=== PATIENT | female | born 1995 | race Caucasian/White ===

== ENCOUNTER 2016-08-10 00:04 | Emergency (ER) | payer OTHER, SELFPAY ==
[2016-08-10] MEDS ORDERED: AMOXicillin 250 MG CAP ONE (00:27)
[2016-08-10] MEDS ORDERED: Acetaminophen 500 MG TAB ONE (00:27)
--- NOTE | 2016-08-10 02:13 | ERRECORD ---
[facility] EMERGENCY RECORD HPI TOOTHACHE (00:21 WMEI) CHIEF COMPLAINT: Patient presents for evaluation of toothache. HISTORIAN: History provided by patient. LOCATION: Symptoms are localized, LOWER L MOLAR. QUALITY: Pain is dull in nature, described as throbbing. TIME COURSE: Gradual onset of symptoms, 1, days priror to arrival, There has been no change in the patient's symptoms over time. ASSOCIATED WITH: No associated chills, No associated fever. EXACERBATED BY: Patient's condition exacerbated by nothing. RELIEVED BY: Patient's condition relieved by nothing. ROS (00:21 WMEI) CONSTITUTIONAL: Historian denies chills, denies fever. EYES: Historian denies eye pain, denies eye discharge. ENT: Historian reports otalgia, denies rhinorrhea, denies sore throat. CARDIOVASCULAR: Historian denies chest pain, no radiation. RESPIRATORY: Historian denies cough, denies shortness of breath. GI: Historian denies abdominal pain, denies nausea, denies vomiting. GENITOURINARY FEMALE: Historian denies frequency, reports , denies urgency. MUSCULOSKELETAL: Historian denies joint stiffness, denies joint swelling. SKIN: Historian denies skin changes, denies skin lesions. NEUROLOGIC: Historian denies headache, denies mental status changes. PSYCHIATRIC: Historian denies alcohol abuse, denies drug abuse. PAST MEDICAL HISTORY (00:15 AADK) MEDICAL HISTORY: Flu vaccine up to date, Date of immunization: 2016, No past medical history, Tetanus immunization up to date, Pneumococcal vaccine not up to date, REVIEWED 08/10/16. FEMALE SURGICAL HISTORY: Patient has no surgical history, REVIEWED 08/10/16. PSYCHIATRIC HISTORY: No previous psychiatric history, REVIEWED 08/10/16. SOCIAL HISTORY: Patient denies alcohol use, Patient denies drug use, Patient currently uses tobacco, smokes cigarettes, daily, Patient smokes 2 CIGS/DAY. REVIEWED 08/10/16. FAMILY HISTORY: Family history is non-contributory to this case,REVIEWED 08/10/16. KNOWN ALLERGIES No Known Drug Allergies CURRENT MEDICATIONS (00:11 AADK) Vitamin: &a-1R&a+25V*p+0X*p2556O*c202B*c15G*c2P*p-0X&a-25V&a+1R Name: Lexi Olvera : 1995 F21 MedRec: [id number] AcctNum: [id number] Prepared: SatAug 10, 2016 07:23 by Interface Page 1 of 3 D [facility] EMERGENCY RECORD TABLET : ORAL Patient Dose: 1 tab(s) Oral once a day. VITAL SIGNS (00:11 AADK) VITAL SIGNS: BP: 120/86, Pulse: 95, Resp: 18 (Non-Labored), Temp: 98.4 (Oral), Pain: 10 (Constant), O2 sat: 98 on Room Air, Time: 08/10/2016 00:11. PHYSICAL EXAM (00:22 WMEI) CONSTITUTIONAL: Vital signs reviewed, Patient appears non toxic, Patient alert and oriented to person, place and time. HEAD: Head exam included findings of head atraumatic, normocephalic. EYES: Conjunctiva normal, Sclera normal. ENT: Ear exam normal, Nose exam normal, Pharynx exam normal, Teeth with, dental caries, TENDER MILD SWELLING L LOWER 2ND MOLAR. NECK: Neck exam included findings of normal range of motion, Trachea midline. RESPIRATORY CHEST: Breath sounds clear, Chest exam included findings of chest movement symmetrical. CARDIOVASCULAR: Cardiovascular exam included findings of heart rate regular rate and rhythm, Heart sounds normal. ABDOMEN FEMALE: Abdominal exam included findings of abdomen nontender, Liver normal, Spleen normal. UPPER EXTREMITY: Upper extremity exam included findings of inspection normal, Range of motion normal, Motor strength normal. LOWER EXTREMITY: Lower extremity exam included findings of inspection normal, Range of motion normal, Motor strength normal. NEURO: Cameron coma scale 15, Neuro exam findings include patient oriented to person, place and time, Speech normal, Gait normal. SKIN: Skin exam included findings of skin warm, dry, and normal in color. LYMPHATIC: Lymphatic exam normal. PSYCHIATRIC: Psychiatric exam included findings of patient oriented to person place and time, Normal affect, Judgment normal, Insight normal. MEDICATION ADMINISTRATION SUMMARY Drug Name: amoxicillin, Dose Ordered: 1000 mg, Route: Oral, Status: Given, Time: 00:30 08/10/2016, Drug Name: acetaminophen oral, Dose Ordered: 1000 mg, Route: Oral, Status: Given, Time: 00:30 08/10/2016, Detailed record available in Medication Service section. PROBLEM LIST No recorded problems DIAGNOSIS (00:27 WMEI) &a-1R&a+25V*p+0X*m0355Z*c202B*c15G*c2P*p-0X&a-25V&a+1R Name: Lexi Olvera : 1995 F21 MedRec: [id number] AcctNum: [id number] Prepared: SatAug 10, 2016 07:23 by Interface Page 2 of 3 pMD [facility] EMERGENCY RECORD FINAL: PRIMARY: Toothache. PRESCRIPTION (00:26 WMEI) PC Pen V K: TABLET : 500 mg : ORAL : Quantity: 1 Unit: tab(s) Route: ORAL Schedule: 4 times a day Dispense: 28 Unit: tab(s) May substitute. Refills: No Refills . NOTES: No refills. DISPOSITION PATIENT: Disposition Type: Discharge, Disposition: *Discharge Home. (00:27 WMEI) Patient left the department. (00:38 AADK) Fuller: AADK=VIDHYA Grubbs Angela WMEI=DO Anette, Anthony &a-1R&a+25V*p+0X*c1210Z*c202B*c15G*c2P*p-0X&a-25V&a+1R Name: Lexi Olvera : 1995 F21 MedRec: [id number] AcctNum: [id number] Prepared: SatAug 10, 2016 07:23 by Interface Page 3 of 3 pMD MTDD
--- NOTE | 2016-08-10 02:15 | PICIS ---
[facility] EMERGENCY RECORD TRIAGE (00:10 AADK) PATIENT: NAME: Lexi Olvera, AGE: 21, GENDER: female, : Nurys 1995, TIME OF GREET: SatAug 10, 2016 00:04, PREFERRED LANGUAGE: Maori, ETHNICITY: Not or , ECODE BILLING MAP: [facility], SSN: [id number], Zip Code: [address], KG WEIGHT: 74.84 (est.), PHONE: , , , PERSON ID: [id number], PCP: DR. HAWA CHRISTIE. (00:10 AADK) PAYMENT: X Medicaid. (00:33) COMPLAINT: LEFT EAR & TOOTH PAIN. (00:10 AADK) ADMISSION: URGENCY: 4 Non Urgent, ADMISSION SOURCE: Home, TRANSPORT: CAR, BED: ER -03. (00:10 AADK) PAIN: Patient complains of pain described as, throbbing, on a scale 0-10 patient rates pain as 10, Pain is constant, Aggravating factors:, Aggravating factors include NONE. (00:15 AADK) SIRS SCORING: Heart Rate 55-109 (0), Temp range 96.8-101.1 (0), respiratory rate 12-24 (0), Mental Status altered: no (0), Total SIRS Score 0, Infection or Suspected Infection: No. (00:10 AADK) TRIAGE SCREENING: Patient denies suicidal ideation, Patient denies presence of domestic violence. (00:15 AADK) LMP: Last menstrual period: 04/18/2016, Estimated conception 05/02/2016, Estimated due date 01/23/2017, Estimated age 16 weeks, 2 days. (00:15 AADK) PROVIDERS: TRIAGE NURSE: Myrna Grubbs RN. (00:10 AADK) VITAL SIGNS: BP 120/86, Pulse 95, Resp 18, (Non-Labored), Temp 98.4, (Oral), Pain 10, (Constant), O2 Sat 98, on Room Air, Time 08/10/2016 00:11. (00:11 AADK) PREVIOUS VISIT ALLERGIES: No Known Drug Allergies. (00:10 AADK) No Known Drug Allergies. (00:15 AADK) KNOWN ALLERGIES No Known Drug Allergies CURRENT MEDICATIONS (00:11 AADK) Vitamin: TABLET : ORAL Patient Dose: 1 tab(s) Oral once a day. VITAL SIGNS (00:11 AADK) VITAL SIGNS: BP: 120/86, Pulse: 95, Resp: 18 (Non-Labored), Temp: 98.4 (Oral), Pain: 10 (Constant), O2 sat: 98 on Room Air, Time: 08/10/2016 00:11. NURSING ASSESSMENT: DENTAL (00:10 AADK) CONSTITUTIONAL: Patient arrives ambulatory, Gait steady, History obtained from patient, Patient appears comfortable, Patient cooperative, Patient alert, Oriented to person, place and time, Skin warm, Skin dry, Skin normal in color, Mucous membranes pink, Mucous membranes moist, Patient is well-groomed, Patient complains of LEFT &a-1R&a+25V*p+0X*b0674P*c202B*c15G*c2P*p-0X&a-25V&a+1R Name: Lexi Olvera : 1995 F21 MedRec: [id number] AcctNum: [id number] Prepared: SatAug 10, 2016 07:28 by Interface Page 1 of 5 pMD [facility] EMERGENCY RECORD EAR AND TOOTH PAIN, PT PRESENTS TO ER WITH C/O LEFT EAR AND TOOTH PAIN. STATES LEFT EAR HAS BEEN HURTING "OFF AND ON" FOR A WEEK AND TOOTH PAIN STARTED TONIGHT. NOTED LEFT BACK MOLAR WITH LARGE FILLING AND TOOTH APPEARS LOOSE. TENDER TO LEFT JAW AREA TOWARDS LEFT EAR. PT TOOK TYLENOL 1000 MG APPROX 3 HOURS CARDIOLOGY PHYSICIAN TO ER. DENTAL: Dental assessment findings include mouth normal, Teeth abnormal:, loose secondary tooth (teeth), gums tender. SAFETY: Side rails up, Cart/Stretcher in lowest position, Family at bedside, Call light within reach, Hospital ID band on, Patient in view of the nursing station. MEDICATION ADMINISTRATION SUMMARY Drug Name: amoxicillin, Dose Ordered: 1000 mg, Route: Oral, Status: Given, Time: 00:30 08/10/2016, Drug Name: acetaminophen oral, Dose Ordered: 1000 mg, Route: Oral, Status: Given, Time: 00:30 08/10/2016, Detailed record available in Medication Service section. MEDICATION SERVICE acetaminophen oral: Order: acetaminophen oral (acetaminophen) - Dose: 1000 mg : Oral Schedule: Now Ordered by: Anthony Cheema DO Entered by: Anthony Cheema DO SatAug 10, 2016 00:26 , Acknowledged by: Myrna Grubbs RN SatAug 10, 2016 00:26 Documented as given by: Myrna Grubbs RN SatAug 10, 2016 00:30 Patient, Medication, Dose, Route and Time verified prior to administration. Amount given: 1000 mg, Site: Medication administered P.O., Correct patient, time, route, dose and medication confirmed prior to administration, Patient advised of actions and side-effects prior to administration, Allergies confirmed and medications reviewed prior to administration, Patient in position of comfort, Side rails up, Cart in lowest position, Family at bedside, Call light in reach. : Follow Up : Response assessment performed, No signs or symptoms of allergic reaction noted. (00:36 AADK) amoxicillin: Order: amoxicillin (amoxicillin trihydrate) - Dose: 1000 mg : Oral Schedule: Now Ordered by: Anthony Cheema DO Entered by: Anthony Cheema DO SatAug 10, 2016 00:25 , Acknowledged by: Myrna Grubbs RN SatAug 10, 2016 00:26 Documented as given by: Myrna Grubbs RN SatAug 10, 2016 00:30 Patient, Medication, Dose, Route and Time verified prior to administration. Amount given: 1000 mg, Site: Medication administered P.O., Correct patient, time, route, dose and medication confirmed prior to administration, Patient advised of actions and side-effects prior to &a-1R&a+25V*p+0X*d1842O*c202B*c15G*c2P*p-0X&a-25V&a+1R Name: Lexi Olvera : 1995 F21 MedRec: [id number] AcctNum: [id number] Prepared: SatAug 10, 2016 07:28 by Interface Page 2 of 5 pMD [facility] EMERGENCY RECORD administration, Allergies confirmed and medications reviewed prior to administration, Patient in position of comfort, Side rails up, Cart in lowest position, Family at bedside, Call light in reach. : Follow Up : Response assessment performed, No signs or symptoms of allergic reaction noted. (00:36 AADK) HPI TOOTHACHE (00:21 WMEI) CHIEF COMPLAINT: Patient presents for evaluation of toothache. HISTORIAN: History provided by patient. LOCATION: Symptoms are localized, LOWER L MOLAR. QUALITY: Pain is dull in nature, described as throbbing. TIME COURSE: Gradual onset of symptoms, 1, days priror to arrival, There has been no change in the patient's symptoms over time. ASSOCIATED WITH: No associated chills, No associated fever. EXACERBATED BY: Patient's condition exacerbated by nothing. RELIEVED BY: Patient's condition relieved by nothing. ROS (00:21 WMEI) CONSTITUTIONAL: Historian denies chills, denies fever. EYES: Historian denies eye pain, denies eye discharge. ENT: Historian reports otalgia, denies rhinorrhea, denies sore throat. CARDIOVASCULAR: Historian denies chest pain, no radiation. RESPIRATORY: Historian denies cough, denies shortness of breath. GI: Historian denies abdominal pain, denies nausea, denies vomiting. GENITOURINARY FEMALE: Historian denies frequency, reports , denies urgency. MUSCULOSKELETAL: Historian denies joint stiffness, denies joint swelling. SKIN: Historian denies skin changes, denies skin lesions. NEUROLOGIC: Historian denies headache, denies mental status changes. PSYCHIATRIC: Historian denies alcohol abuse, denies drug abuse. PAST MEDICAL HISTORY (00:15 AADK) MEDICAL HISTORY: Flu vaccine up to date, Date of immunization: 2016, No past medical history, Tetanus immunization up to date, Pneumococcal vaccine not up to date, REVIEWED 08/10/16. FEMALE SURGICAL HISTORY: Patient has no surgical history, REVIEWED 08/10/16. PSYCHIATRIC HISTORY: No previous psychiatric history, REVIEWED 08/10/16. SOCIAL HISTORY: Patient denies alcohol use, Patient denies drug use, Patient currently uses tobacco, smokes cigarettes, daily, Patient smokes 2 CIGS/DAY. REVIEWED 08/10/16. FAMILY HISTORY: Family history is non-contributory to this case,REVIEWED 08/10/16. &a-1R&a+25V*p+0X*f7016I*c202B*c15G*c2P*p-0X&a-25V&a+1R Name: Lexi Olvera : 1995 F21 MedRec: [id number] AcctNum: [id number] Prepared: SatAug 10, 2016 07:28 by Interface Page 3 of 5 D [facility] EMERGENCY RECORD PHYSICAL EXAM (00:22 WMEI) CONSTITUTIONAL: Vital signs reviewed, Patient appears non toxic, Patient alert and oriented to person, place and time. HEAD: Head exam included findings of head atraumatic, normocephalic. EYES: Conjunctiva normal, Sclera normal. ENT: Ear exam normal, Nose exam normal, Pharynx exam normal, Teeth with, dental caries, TENDER MILD SWELLING L LOWER 2ND MOLAR. NECK: Neck exam included findings of normal range of motion, Trachea midline. RESPIRATORY CHEST: Breath sounds clear, Chest exam included findings of chest movement symmetrical. CARDIOVASCULAR: Cardiovascular exam included findings of heart rate regular rate and rhythm, Heart sounds normal. ABDOMEN FEMALE: Abdominal exam included findings of abdomen nontender, Liver normal, Spleen normal. UPPER EXTREMITY: Upper extremity exam included findings of inspection normal, Range of motion normal, Motor strength normal. LOWER EXTREMITY: Lower extremity exam included findings of inspection normal, Range of motion normal, Motor strength normal. NEURO: Troy coma scale 15, Neuro exam findings include patient oriented to person, place and time, Speech normal, Gait normal. SKIN: Skin exam included findings of skin warm, dry, and normal in color. LYMPHATIC: Lymphatic exam normal. PSYCHIATRIC: Psychiatric exam included findings of patient oriented to person place and time, Normal affect, Judgment normal, Insight normal. EVENTS TRANSFER: Triage to Emergency Emergency Room -03. (SatAug 10, 2016 00:10 AADK) Removed from Emergency Emergency Room -03. (00:38 AADK) PROBLEM LIST No recorded problems DIAGNOSIS (00:27 WMEI) FINAL: PRIMARY: Toothache. DISPOSITION PATIENT: Disposition Type: Discharge, Disposition: *Discharge Home. (00:27 WMEI) Patient left the department. (00:38 AADK) INSTRUCTION (00:28 WMEI) DISCHARGE: DENTAL PAIN. SPECIAL: Follow-up with your PCP/DENTIST. &a-1R&a+25V*p+0X*o4872E*c202B*c15G*c2P*p-0X&a-25V&a+1R Name: Lexi Olvera : 1995 F21 MedRec: [id number] AcctNum: [id number] Prepared: SatAug 10, 2016 07:28 by Interface Page 4 of 5 pMD [facility] EMERGENCY RECORD PRESCRIPTION (00:26 WMEI) PC Pen V K: TABLET : 500 mg : ORAL : Quantity: 1 Unit: tab(s) Route: ORAL Schedule: 4 times a day Dispense: 28 Unit: tab(s) May substitute. Refills: No Refills . NOTES: No refills. IMAGING (00:36 AADK) *DISCHARGE INSTRUCTIONS RECEIPT: Image captured from scanner. *SUPPLY CHARGE SHEET: Image captured from scanner. ADMIN (07:19 WMEI) DIGITAL SIGNATURE: DO Cheema William. Fuller: AADK=VIDHYA Grubbs, Myrna WMEI=DO Cheema William &a-1R&a+25V*p+0X*w0450J*c202B*c15G*c2P*p-0X&a-25V&a+1R Name: Lexi Olvera : 1995 F21 MedRec: [id number] AcctNum: [id number] Prepared: SatAug 10, 2016 07:28 by Interface Page 5 of 5 pMD MTDD
== END 2016-08-10 00:36 | disposition home or self-care (01) ==
LOC: BURERS 00:04
DX: K08.89 Other specified disorders of teeth and supporting structures (principal); F17.210 Nicotine dependence, cigarettes, uncomplicated
CPT/HCPCS: 99282

== ENCOUNTER 2016-10-24 16:55 | Emergency (ER) | payer OTHER ==
[2016-10-24 17:40] LABS: Bilirubin Negative (Negative); Blood, Urine Trace (Negative); Clarity Clear (Clear); Glucose, Urine (Dipstick) Negative (Negative); Leukocyte Small (Negative); Nitrite Negative (Negative); Protein, Urine (Dipstick) Negative (Neg-Trace); Specific Gravity, Urine 1.015 (1.005-1.030); Urobilinogen 0.2 mg/dL (0.2-1.0); pH, Urine 7.5 (5.0-9.0)
[2016-10-24 17:54] LABS: Bacteria/HPF Rare-Few HPF (None Seen); Squamous Epithelial 0-3 HPF (0-3)
[2016-10-24] MEDS ORDERED: AMOXicillin 250 MG CAP ONE (18:10)
== END 2016-10-24 18:16 | disposition home or self-care (01) ==
LOC: BURERS 16:55
DX: O23.43 Unspecified infection of urinary tract in pregnancy, third trimester (principal); O99.513 Diseases of the respiratory system complicating pregnancy, third trimester; J02.9 Acute pharyngitis, unspecified; O99.333 Smoking (tobacco) complicating pregnancy, third trimester; F17.210 Nicotine dependence, cigarettes, uncomplicated
CPT/HCPCS: 81003; 81015; 87077; 87081; 87086; 87186; 87430; 99283

== ENCOUNTER 2016-12-04 19:16 | Emergency (ER) | payer OTHER ==
[2016-12-04] MEDS ORDERED: AMOXicillin 250 MG CAP ONE (19:33)
[2016-12-04] MEDS ORDERED: HYDROcodone/Acetaminophen 10/325 mg Tablet ONE (19:33)
== END 2016-12-04 19:38 | disposition home or self-care (01) ==
LOC: BURERS 19:16
DX: O99.613 Diseases of the digestive system complicating pregnancy, third trimester (principal); K02.9 Dental caries, unspecified; Z3A.32 32 weeks gestation of pregnancy
CPT/HCPCS: 99282

== ENCOUNTER 2017-06-23 11:31 | Emergency (ER) | payer OTHER | END 2017-06-23 12:30 | disposition home or self-care (01) | LOC: BURERS 11:31 | DX: J01.90 Acute sinusitis, unspecified (principal); F17.210 Nicotine dependence, cigarettes, uncomplicated | CPT/HCPCS: 99283 ==

== ENCOUNTER 2021-01-11 07:44 | Emergency (ER) | payer SELFPAY ==
[2021-01-11] MEDS ORDERED: Ketorolac Tromethamine 30 MG/ML VIAL ONE (08:44)
[2021-01-11] MEDS ORDERED: predniSONE 20 MG TAB ONE (08:44)
[2021-01-11 08:45] LABS: Bilirubin Negative (Negative); Blood, Urine Negative (Negative); Clarity Clear (Clear); Glucose, Urine (Dipstick) Negative (Negative); Ketone, Urine Negative (Negative); Leukocyte Negative (Negative); Nitrite Negative (Negative); Protein, Urine (Dipstick) Negative (Neg-Trace); Urobilinogen 0.2 mg/dL (Less than 2); pH, Urine 6.5 (5.0-9.0)
[2021-01-11 08:50] LABS: Pregnancy Test - Urine (BHCG) Negative (Negative); Pregu Control Background? CLEAR/WHITE (CLR/WHITE); Pregu Control Bar Appear? YES (CONTROL BAR); Specific Gravity 1.031 (1.002-1.036); Specific Gravity, Urine 1.031 (1.002-1.036)
== END 2021-01-11 08:57 | disposition home or self-care (01) ==
LOC: BURERS 07:44
DX: S39.012A Strain of muscle, fascia and tendon of lower back, initial encounter (principal); F17.210 Nicotine dependence, cigarettes, uncomplicated; Z79.899 Other long term (current) drug therapy; X58.XXXA Exposure to other specified factors, initial encounter
CPT/HCPCS: 81003; 81025; 96372; 99283; J1885; J7512

== ENCOUNTER 2021-02-01 18:51 | Emergency (ER) | payer SELFPAY ==
[2021-02-02 15:56] LABS: SARS-CoV-2 PCR by NAA Not Detected (NotDetected)
== END 2021-02-01 19:58 | disposition home or self-care (01) ==
LOC: BURERS 18:51
DX: R11.0 Nausea (principal); R05 Cough; R09.81 Nasal congestion; R68.83 Chills (without fever); J34.89 Other specified disorders of nose and nasal sinuses; F17.210 Nicotine dependence, cigarettes, uncomplicated; Z20.822 Contact with and (suspected) exposure to COVID-19
CPT/HCPCS: 99283; U0003; U0005

== ENCOUNTER 2021-03-02 07:32 | Emergency (ER) | payer SELFPAY ==
[2021-03-02 17:14] LABS: SARS-CoV-2 PCR by NAA Not Detected (NotDetected)
== END 2021-03-02 08:07 | disposition home or self-care (01) ==
LOC: BURERS 07:32
DX: Z20.822 Contact with and (suspected) exposure to COVID-19 (principal); F17.210 Nicotine dependence, cigarettes, uncomplicated
CPT/HCPCS: 99283; U0003; U0005

== ENCOUNTER 2021-12-17 09:05 | Emergency (ER) | payer MEDICAID, OTHER ==
[2021-12-17] MEDS ORDERED: Dexamethasone 4 MG TAB ONE (09:37)
[2021-12-17] MEDS ORDERED: Sulfameth/Trimethoprim DS 800-160mg TAB ONE (09:38)
== END 2021-12-17 10:04 | disposition home or self-care (01) ==
LOC: BURERS 09:05
DX: J01.90 Acute sinusitis, unspecified (principal); F17.210 Nicotine dependence, cigarettes, uncomplicated
CPT/HCPCS: J8540

== ENCOUNTER 2021-12-18 08:54 | Emergency (ER) | payer OTHER ==
[2021-12-18 15:21] LABS: SARS-CoV-2 PCR by NAA Not Detected (NotDetected)
== END 2021-12-18 09:50 | disposition home or self-care (01) ==
LOC: BURERS 08:54
DX: J32.9 Chronic sinusitis, unspecified (principal); F17.210 Nicotine dependence, cigarettes, uncomplicated; Z20.822 Contact with and (suspected) exposure to COVID-19
CPT/HCPCS: 99283; J8540; U0003; U0005

== ENCOUNTER 2022-05-23 17:28 | Emergency (ER) | payer OTHER ==
[2022-05-23] MEDS ORDERED: Morphine 2 MG/ML VIAL ONE (18:03)
[2022-05-23] MEDS ORDERED: predniSONE 20 MG TAB ONE (18:04)
[2022-05-23] MEDS ORDERED: Ibuprofen 200 MG TAB ONE (18:04)
== END 2022-05-23 19:40 | disposition home or self-care (01) ==
LOC: BURERS 17:28
DX: S16.1XXA Strain of muscle, fascia and tendon at neck level, initial encounter (principal); S29.012A Strain of muscle and tendon of back wall of thorax, initial encounter; F17.210 Nicotine dependence, cigarettes, uncomplicated; V43.52XA Car driver injured in collision with other type car in traffic accident, initial encounter
CPT/HCPCS: 71046; 96372; J2270; J7512

== ENCOUNTER 2022-10-20 13:21 | Emergency (ER) | payer OTHER | END 2022-10-20 13:48 | disposition home or self-care (01) | LOC: BURERS 13:21 | DX: M77.9 Enthesopathy, unspecified (principal); F17.210 Nicotine dependence, cigarettes, uncomplicated | CPT/HCPCS: 99283 ==

== ENCOUNTER 2023-03-23 15:13 | Emergency (ER) | payer OTHER ==
[2023-03-23] MEDS ORDERED: Ibuprofen 800 MG TAB ONE (15:21)
== END 2023-03-23 15:33 | disposition home or self-care (01) ==
LOC: BURERS 15:13
DX: S63.501A Unspecified sprain of right wrist, initial encounter (principal); F17.210 Nicotine dependence, cigarettes, uncomplicated; X50.9XXA Other and unspecified overexertion or strenuous movements or postures, initial encounter; Y93.89 Activity, other specified; Y92.69 Other specified industrial and construction area as the place of occurrence of the external cause
CPT/HCPCS: 99283

== ENCOUNTER 2024-01-29 07:59 | Emergency (ER) | payer OTHER, SELFPAY | END 2024-01-29 08:38 | disposition home or self-care (01) | LOC: BURERS 07:59 | DX: N89.8 Other specified noninflammatory disorders of vagina (principal); F17.210 Nicotine dependence, cigarettes, uncomplicated | CPT/HCPCS: 99282 ==